=== PATIENT | female | born 1945 | race Caucasian/White ===

== ENCOUNTER → 2019-10-24 15:53 | Outpatient (BNVA) | payer MEDICARE, OTHER, SELFPAY | PROVIDERS: Visit Provider Orthopaedic Surgery | DX: S52.592A Other fractures of lower end of left radius, initial encounter for closed fracture (principal); S52.615A Nondisplaced fracture of left ulna styloid process, initial encounter for closed fracture; X58.XXXA Exposure to other specified factors, initial encounter | CPT/HCPCS: 73110 ==

== ENCOUNTER 2019-10-24 16:53 | Outpatient (CLI) | payer MEDICARE, OTHER, SELFPAY | END 2019-10-24 16:54 | disposition home or self-care (01) | LOC: SPT 16:54 | PROVIDERS: Visit Provider Orthopaedic Surgery | DX: Z46.89 Encounter for fitting and adjustment of other specified devices (principal); S52.592D Other fractures of lower end of left radius, subsequent encounter for closed fracture with routine healing; X58.XXXD Exposure to other specified factors, subsequent encounter; S52.592A Other fractures of lower end of left radius, initial encounter for closed fracture; S52.615A Nondisplaced fracture of left ulna styloid process, initial encounter for closed fracture; X58.XXXA Exposure to other specified factors, initial encounter | CPT/HCPCS: 73110; 97760; L3908 ==

== ENCOUNTER 2019-10-26 08:16 | Day surgery (SDC) | payer MEDICARE, OTHER, SELFPAY ==
[2019-10-25 11:10] VITALS: BMI 41.8
--- NOTE | 2019-10-26 | XR_ITS ---
WS: [id number] INTRAOPERATIVE TECHNIQUE: 4 Spot fluoroscopic images for intraoperative purposes. FLUOROSCOPY TIME: 104.8 seconds seconds CLINICAL INFORMATION: ORIF left wrist COMPARISON: None. FINDINGS: Prior postoperative changes plate and screw fixation distal radius. Hardware appears in good position . Normal alignment. Ulna styloid avulsion. XR/XR wrist LT 2V [id number] IMPRESSION: Images obtained for intraoperative purposes.
--- NOTE | 2019-10-26 | SCC_ITS ---
Procedure Done: Open reduction internal fixation left distal radius fracture (2 intra-articular fragments) 105.8 seconds of fluoroscopic guidance, for a cumulative dose of 1.81 mGy, was provided to Dr. Winchester by the radiology department. C-arm images of the LEFT wrist were saved for the patient's permanent record. [facility]
--- NOTE | 2019-10-26 07:13 | ANES.PREANE2 ---
Pre-Anesthetic Assessment Pre-Anesthetic Assessment: Height/Weight: Height 1.73 m Weight 124.738 kg Preop Diagnosis: L radius fracture Proposed Procedure: Operation Date: 10/26/19 10:05 Proposed Procedures p ORIF left distal radius 40568 S52.502A(Left) - Basim Winchester MD Familial anesthetic complications: None Was Beta Kit taken within 24 hours: Yes Last intake: NPO > 8 hrs except siips of water with meds Social: Social History: No alcohol and No tobacco Exam: Pre-Anes Outpt Exam: alert, oriented x 3, clear to auscultation bilaterally and regular rate & rhythm Airway: Cervical ROM: WNL MP: 3 Dentition: False Pulmonary: Pulmonary: None reported CV/HEM: CV/HEM: Afib (on xarelto and sotalol) and HTN Comments: last took xarelto thursday Metabolic: Metabolic: DM and Morbid obesity Neuropsych: Neuropsych: Neuropathy (feet) Anesthetic Plan: ASA status: 3 Anesthesia: General and Regional (specify below) Risk of > 500 ml blood loss (7ml/kg in children): No PFSH Anesthesia PFSH: Social History Smoking and tobacco status: never smoked Alcohol intake: never Data Anesthesia Cardiac Studies: No Data to Display
[2019-10-26 08:41] VITALS: BP 139/80; PULSE 61; RESP 18; TEMP 36.8; O2SAT 93
[2019-10-26 08:52] LABS: Glucose Point of Care 131 mg/dL (70-110)
[2019-10-26] MEDS: sodium chloride 0.9% 1,000 ML 30 ML IV (09:05)
[2019-10-26] MEDS: midazolam 1 mg/mL INJ 5 ML 5 MG IVP (09:22)
--- NOTE | 2019-10-26 09:29 | ANES.PROC ---
Anesthesia Procedures Procedure/Date: 10/26/19 Nerve Block ^: Nerve Block 1: Main Anesthesia: general anesthesia Time Out Performed: Yes Consent: requested by attending/covering physician, from patient, risks and benefits reviewed and patient agrees to proceed Nerve block location: supraclavicular (L) Anesthesia monitors applied: pulse oximetry and oxygen Nerve block position: semi sitting Anesthetic Used: ropivicaine 0.5% and with decadron (4) Amount of anesthesia used (mL): 30 Interscalene/Femoral BLK: 4 stimuplex 21 g needle used for position and inplane approach Injection: neg aspiration of heme Patient Tolerated Procedure: well and no complications Complications: none
--- NOTE | 2019-10-26 10:57 | W.PM.OPSUD ---
Surgery/Procedure H&P Update DATE OF PROCEDURE: October 26, 2019 DATE H&P PERFORMED: 10/24/19 PREOP DIAGNOSIS: L radius fracture PLANNED PROCEDURE: Operation Date: 10/26/19 10:05 Proposed Procedures p ORIF left distal radius 50431 S52.502A(Left) - Basim Winchester MD
--- NOTE | 2019-10-26 12:38 | P.OP_ITS ---
Operative Report Date of procedure: October 26, 2019 Pre-op Diagnosis: L radius fracture Post-op diagnosis: same Post-op Findings: Articular fracture left distal radius Procedure Done: Open reduction internal fixation left distal radius fracture (2 intra-articular fragments) Implants: Standard short left distal radius Deepak Variax plate Pathology: none sent Anesthesia: Nerve Block (Axillary nerve block) Estimated blood loss (mL): 25 Tourniquet time (min): 59 Complications: None Findings: The patient had a displaced intra-articular fracture of the left distal radius consisting of volar displacement of the lunate facet and associated displaced radial styloid fracture Condition: stable Disposition: same day Procedure: Initial attempts were made at closed reduction however a satisfactory stable reduction could not be obtained. A decision was made to proceed with open reduction internal fixation.A 5 cm long incision was made along over the flexor carpi radialis tendon. Dissection was carried down through the tendon sheath. Dissection was carried down bluntly to the pronator quadratus. The pronator quadratus was elevated off of the distal radius leaving a cuff for later repair. Closed reduction was accomplished of the distal radius. A Stry ker Variax standard short plate was applied. It was fixed distally with 5 locking screws (2 in the radial styloid ) and proximally with 3 bicortical screws. Intraoperative imaging showed excellent position of the hardware. The wound was irrigated with saline. The pronator quadratus was reapproximated with 2-0 Vicryl. Subcutaneous tissues were closed with 2-0 Vicryl. The skin was closed with skin julio. Sterile dressings were applied. The patient was taken to outpatient surgery in stable condition.
[2019-10-26 12:52] VITALS: BP 171/85; PULSE 70; RESP 18; TEMP 36.1; O2SAT 94
[2019-10-26 13:21] VITALS: BP 182/85; PULSE 69; RESP 18; O2SAT 96
== END 2019-10-26 14:00 | disposition home or self-care (01) ==
PROVIDERS: PCP Internal Medicine; Visit Provider Orthopaedic Surgery
PROC: (CPT 25608; principal; 2019-10-26 10:05)
DX: S52.572A Other intraarticular fracture of lower end of left radius, initial encounter for closed fracture (principal); W19.XXXA Unspecified fall, initial encounter; E11.40 Type 2 diabetes mellitus with diabetic neuropathy, unspecified; I48.91 Unspecified atrial fibrillation; I10 Essential (primary) hypertension; Z79.01 Long term (current) use of anticoagulants; E66.01 Morbid (severe) obesity due to excess calories; Z68.41 Body mass index [BMI] 40.0-44.9, adult
CPT/HCPCS: 25608; 12345; 36416; 73100; 76000; 82962; 96374; C1713; J0690; J1100; J1580; J2001; J2250; J2704; J2795; J3010; J3490; J7030

== ENCOUNTER → 2019-12-08 13:11 | Outpatient (BNVA) | payer MEDICARE, OTHER, SELFPAY | PROVIDERS: PCP Internal Medicine; Visit Provider Orthopaedic Surgery | DX: Z48.89 Encounter for other specified surgical aftercare (principal); S52.612A Displaced fracture of left ulna styloid process, initial encounter for closed fracture; S52.572A Other intraarticular fracture of lower end of left radius, initial encounter for closed fracture; X58.XXXA Exposure to other specified factors, initial encounter | CPT/HCPCS: 73110 ==

== ENCOUNTER → 2020-08-14 08:08 | Outpatient (BNVA) | payer MEDICARE, OTHER, SELFPAY | PROVIDERS: PCP Internal Medicine; Visit Provider Orthopaedic Surgery | DX: S52.501A Unspecified fracture of the lower end of right radius, initial encounter for closed fracture (principal); S52.611A Displaced fracture of right ulna styloid process, initial encounter for closed fracture; X58.XXXA Exposure to other specified factors, initial encounter; Z46.89 Encounter for fitting and adjustment of other specified devices; S52.591D Other fractures of lower end of right radius, subsequent encounter for closed fracture with routine healing; X58.XXXD Exposure to other specified factors, subsequent encounter | CPT/HCPCS: 73110; 97760; L3982 ==

== ENCOUNTER 2020-08-14 09:46 | Outpatient (CLI) | payer MEDICARE, OTHER, SELFPAY | END 2020-08-14 09:47 | disposition home or self-care (01) | LOC: SPT 09:46 | PROVIDERS: PCP Internal Medicine; Visit Provider Orthopaedic Surgery | DX: Z46.89 Encounter for fitting and adjustment of other specified devices (principal); S52.591D Other fractures of lower end of right radius, subsequent encounter for closed fracture with routine healing; X58.XXXD Exposure to other specified factors, subsequent encounter | CPT/HCPCS: 97760; L3982 ==

== ENCOUNTER → 2020-09-12 13:57 | Outpatient (BNVA) | payer MEDICARE, OTHER, SELFPAY | PROVIDERS: PCP Internal Medicine; Visit Provider Orthopaedic Surgery | DX: S52.501D Unspecified fracture of the lower end of right radius, subsequent encounter for closed fracture with routine healing (principal); W19.XXXD Unspecified fall, subsequent encounter; Z47.89 Encounter for other orthopedic aftercare | CPT/HCPCS: 73110 ==

== ENCOUNTER → 2020-10-03 14:18 | Outpatient (BNVA) | payer MEDICARE, OTHER, SELFPAY | PROVIDERS: PCP Internal Medicine; Visit Provider Orthopaedic Surgery | DX: S52.501D Unspecified fracture of the lower end of right radius, subsequent encounter for closed fracture with routine healing (principal); X58.XXXD Exposure to other specified factors, subsequent encounter | CPT/HCPCS: 73110 ==